=== PATIENT | female | born 1950 | race Two or more races ===

== ENCOUNTER 2024-09-08 15:00 | Inpatient (IN) | payer OTHER ==
[~2024-09-08] VITALS: Ht 162.6 cm; Wt 90.7 kg
[2024-09-08] MEDS ORDERED: TOPROL XL100 M1 PO (15:13)
[2024-09-08] MEDS ORDERED: NIFEDIPINE20 MG PO (15:13)
[2024-09-08] MEDS ORDERED: CLARITIN10 M1 PO (15:13)
[2024-09-08] MEDS ORDERED: AZOR 10-20 MG1 EACH PO (15:13)
[2024-09-08] MEDS ORDERED: 0.9 % SODIUM CHLORIDE 1,000 ML IV SCH ×2 (16:00→23:00)
[2024-09-08 16:27] LABS: BASO % 0.6 % (0.1-1.2); HEMATOCRIT 28.6 % (34.1-44.9); LYMPH # 1.76 (1.18-3.74); LYMPH % 14.1 % (19.3-53.1); MEAN CORPUSCULAR HEMOGLOBIN 31.5 pg (25.6-32.2); MONO # 0.36 (0.24-0.82); MONO % 2.9 % (4.7-12.5); NEUT # 10.24 (1.56-6.13); NEUT % 81.8 % (34.0-71.1); PLATELET COUNT 237 K/uL (163-369); RED BLOOD COUNT 3.17 M/uL (3.93-5.22); RED CELL DISTRIBUTION WIDTH 14.2 % (11.6-14.4)
[2024-09-08 16:42] LABS: CALCIUM 9.4 mg/dL (8.5-10.1); CREATININE SERUM 1.24 mg/dL (0.55-1.02); GFR 42.64; POTASSIUM 4.79 mEq/L (3.5-5.1)
[2024-09-08] MEDS ORDERED: PIPERACILLIN/TAZOBACTAM SODIUM 3.375 GM VIAL IV ONE ×2 (16:45→17:30)
[2024-09-08 21:10] LABS: URINE APPEARANCE Cloudy; URINE BILIRRUBIN Negative (NEGATIVE); URINE BLOOD Large; URINE COLOR Yellow; URINE GLUCOSE Negative (NEGATIVE); URINE KETONE Negative (NEGATIVE); URINE LEUKOCYTE Moderate; URINE NITRATE Negative; URINE PROTEIN Negative (NEGATIVE); URINE UROBILINOGEN 0.2 E.U./dl
[2024-09-08 21:15] LABS: URINE EPITHELIAL CELLS 27.3 uL (0.0-38.8); URINE RBC 43.6 uL (0.0-20.8); URINE WBC 302.2 uL (0.0-23.2)
[2024-09-08 21:56] LABS: URINE CAST 0.29 uL (0.0-1.40); URINE CRYSTALS MODERATE /HPF
[2024-09-08 21:58] LABS: URINE MUCUS SCANT
[2024-09-08 21:59] LABS: TYPE CELLS SQUAMOUS
[2024-09-08] MEDS ORDERED: PANTOPRAZOLE SODIUM 40 MG/VIAL VIAL IV ONE (22:00)
[2024-09-08] MEDS ORDERED: 0.9 % SODIUM CHLORIDE 1,000 ML IV ONE (22:15)
[2024-09-08] MEDS ORDERED: CEFTRIAXONE SODIUM 2,000 MG in 0.9 % SODIUM CHLORIDE 100 ML IV SCH (23:06)
[2024-09-08] MEDS ORDERED: PANTOPRAZOLE SODIUM 40 MG/VIAL VIAL IV SCH (23:07)
[2024-09-08] MEDS ORDERED: ONDANSETRON HCL 4 MG in 0.9 % SODIUM CHLORIDE 50 ML IV PRN (23:15)
[2024-09-08] MEDS ORDERED: ENALAPRILAT DIHYDRATE 1.25 MG/ML VIAL IV PRN (23:15)
[2024-09-08] MEDS ORDERED: MORPHINE SULFATE 2 MG/ML CARTRIDGE IV PRN (23:15)
[2024-09-08] MEDS ORDERED: HYOSCYAMINE SULFATE 0.125 MG TAB.SUBL PO ONE (23:15)
[2024-09-08] MEDS ORDERED: ACETAMINOPHEN 500 MG GEL..CAP PO PRN (23:15)
[2024-09-09] MEDS ORDERED: CEFTRIAXONE SODIUM 2,000 MG VIAL ONE (00:06)
[2024-09-09 00:45] VITALS: BP 128/80
[2024-09-09 02:03] LABS: BASO % 0.5 % (0.1-1.2); HEMATOCRIT 23.8 % (34.1-44.9); HEMOGLOBIN 8.1 g/dL (11.2-15.7); LYMPH # 2.28 (1.18-3.74); MEAN CORPUSCULAR HEMOGLOBIN 30.6 pg (25.6-32.2); MONO # 0.51 (0.24-0.82); MONO % 4.3 % (4.7-12.5); NEUT # 9.06 (1.56-6.13); NEUT % 75.4 % (34.0-71.1); PLATELET COUNT 197 K/uL (163-369); RED BLOOD COUNT 2.65 M/uL (3.93-5.22); RED CELL DISTRIBUTION WIDTH 14.5 % (11.6-14.4)
[2024-09-09 02:26] LABS: INR 1.1; PARTIAL THROMBOPLASTIN TIME 21.1 SECONDS (22.0-34.0); PROTHROMBIN TIME 11.9 SECONDS (9.0-11.5)
[2024-09-09 05:50] VITALS: BP 146/72; O2SAT 99
[2024-09-09 07:54] LABS: BASO % 0.7 % (0.1-1.2); EOS # 0.01 (0.04-0.54); EOS % 0.1 % (0.7-7.0); LYMPH # 1.85 (1.18-3.74); LYMPH % 17.4 % (19.3-53.1); MEAN CORPUSCULAR HEMOGLOBIN 31.5 pg (25.6-32.2); MONO # 0.59 (0.24-0.82); MONO % 5.5 % (4.7-12.5); NEUT % 75.2 % (34.0-71.1); PLATELET COUNT 182 K/uL (163-369); RED BLOOD COUNT 2.51 M/uL (3.93-5.22); RED CELL DISTRIBUTION WIDTH 14.5 % (11.6-14.4)
[2024-09-09 08:00] VITALS: BP 143/69; O2SAT 99
[2024-09-09 08:24] LABS: HEMOGLOBIN 7.9 g/dL (11.2-15.7)
[2024-09-09 08:25] LABS: HEMATOCRIT 23.3 % (34.1-44.9)
[2024-09-09] MEDS ORDERED: METOPROLOL SUCCINATE 25 MG TAB.SR.24H PO SCH (09:00)
[2024-09-09 18:38] VITALS: BP 149/69; O2SAT 99
[2024-09-10 00:57] VITALS: BP 119/77; O2SAT 100
[2024-09-10 08:02] LABS: BASO % 0.8 % (0.1-1.2); HEMATOCRIT 30.1 % (34.1-44.9); HEMOGLOBIN 10.4 g/dL (11.2-15.7); LYMPH # 2.45 (1.18-3.74); LYMPH % 25.3 % (19.3-53.1); MEAN CORPUSCULAR HEMOGLOBIN 31.6 pg (25.6-32.2); MONO % 6.2 % (4.7-12.5); NEUT # 6.35 (1.56-6.13); NEUT % 65.5 % (34.0-71.1); PLATELET COUNT 182 K/uL (163-369); RED BLOOD COUNT 3.29 M/uL (3.93-5.22); RED CELL DISTRIBUTION WIDTH 15.8 % (11.6-14.4)
[2024-09-10 08:26] VITALS: BP 150/77; O2SAT 96
[2024-09-10] MEDS ORDERED: PANTOPRAZOLE SODIUM 80 MG IV SCH (11:15)
[2024-09-10] MEDS ORDERED: PANTOPRAZOLE SODIUM 80 MG in 0.9 % SODIUM CHLORIDE 100 ML IV SCH (11:15)
[2024-09-10 16:00] VITALS: BP 160/80; O2SAT 99
[2024-09-11 00:48] VITALS: BP 148/69; O2SAT 99
[2024-09-11 08:16] VITALS: BP 161/70; O2SAT 98
[2024-09-12 00:42] VITALS: BP 169/72; O2SAT 98
[2024-09-12] MEDS ORDERED: CEFTRIAXONE SODIUM 2,000 MG VIAL ONE (08:10)
[2024-09-12 09:08] VITALS: BP 141/84; O2SAT 99
[2024-09-12 09:47] LABS: BASO % 0.8 % (0.1-1.2); EOS # 0.19 (0.04-0.54); EOS % 3.7 % (0.7-7.0); LYMPH # 1.07 (1.18-3.74); LYMPH % 20.7 % (19.3-53.1); MEAN CORPUSCULAR HEMOGLOBIN 31.3 pg (25.6-32.2); MONO % 7.7 % (4.7-12.5); NEUT # 3.43 (1.56-6.13); NEUT % 66.3 % (34.0-71.1); PLATELET COUNT 160 K/uL (163-369); RED BLOOD COUNT 2.81 M/uL (3.93-5.22); RED CELL DISTRIBUTION WIDTH 15.4 % (11.6-14.4)
[2024-09-12 10:06] LABS: HEMATOCRIT 25.8 % (34.1-44.9); HEMOGLOBIN 8.8 g/dL (11.2-15.7)
[2024-09-12 10:42] LABS: ALBUMIN 3.1 gm/dL (3.4-5.0); BILIRUBIN TOTAL 0.41 mg/dL (0.3-1.2); CALCIUM 7.9 mg/dL (8.5-10.1); CREATININE SERUM 0.7 mg/dL (0.55-1.02); GFR 82.49; GLOBULINA 2.2 G/DL (2.4-3.5); POTASSIUM 3.44 mEq/L (3.5-5.1); TOTAL PROTEIN 5.3 gm/dL (6.4-8.2)
[2024-09-12] MEDS ORDERED: fentaNYL CITRATE 50 MCG/ML AMPUL IV PUSH ONE (11:15)
[2024-09-12] MEDS ORDERED: DIPHENHYDRAMINE HCL 50 MG/ML VIAL 1ML IV ONE (11:15)
[2024-09-12] MEDS ORDERED: MIDAZOLAM HCL 2 MG/2 ML VIAL IV ONE (11:15)
[2024-09-13 00:37] VITALS: BP 135/78; O2SAT 97
[2024-09-13 08:36] VITALS: BP 150/80; O2SAT 98
[2024-09-13 09:53] LABS: EOS # 0.23 (0.04-0.54); EOS % 3.7 % (0.7-7.0); HEMATOCRIT 28.7 % (34.1-44.9); HEMOGLOBIN 9.9 g/dL (11.2-15.7); LYMPH # 1.39 (1.18-3.74); LYMPH % 22.5 % (19.3-53.1); MEAN CORPUSCULAR HEMOGLOBIN 31.6 pg (25.6-32.2); MONO # 0.32 (0.24-0.82); MONO % 5.2 % (4.7-12.5); NEUT # 4.12 (1.56-6.13); NEUT % 66.8 % (34.0-71.1); PLATELET COUNT 192 K/uL (163-369); RED BLOOD COUNT 3.13 M/uL (3.93-5.22); RED CELL DISTRIBUTION WIDTH 15.5 % (11.6-14.4)
[2024-09-13 10:58] LABS: ALBUMIN 3.5 gm/dL (3.4-5.0); BILIRUBIN TOTAL 0.43 mg/dL (0.3-1.2); CALCIUM 8.7 mg/dL (8.5-10.1); CREATININE SERUM 0.96 mg/dL (0.55-1.02); GFR 57.29; GLOBULINA 2.7 G/DL (2.4-3.5); POTASSIUM 3.42 mEq/L (3.5-5.1); TOTAL PROTEIN 6.2 gm/dL (6.4-8.2)
== END 2024-09-13 12:53 | disposition home or self-care (01) | DRG 378 ==
LOC: ER 15:00 → SURH 23:12 → MEDI 09-11 17:33
PROVIDERS: Emergency Medicine; General Practice; ADMIT Internal Medicine; ATTEND Internal Medicine
PROC: BW21YZZ Computerized Tomography (CT Scan) of Abdomen and Pelvis using Other Contrast (ICD-10-PCS; 2024-09-08)
PROC: 02HV33Z Insertion of Infusion Device into Superior Vena Cava, Percutaneous Approach (ICD-10-PCS; 2024-09-09)
PROC: 30243N1 Transfusion of Nonautologous Red Blood Cells into Central Vein, Percutaneous Approach (ICD-10-PCS; 2024-09-09)
PROC: 0DJ08ZZ Inspection of Upper Intestinal Tract, Via Natural or Artificial Opening Endoscopic (ICD-10-PCS; principal; 2024-09-12)
DX: K92.2 Gastrointestinal hemorrhage, unspecified (principal); N17.9 Acute kidney failure, unspecified; N39.0 Urinary tract infection, site not specified; I10 Essential (primary) hypertension; E78.5 Hyperlipidemia, unspecified; D64.9 Anemia, unspecified